=== PATIENT | female | born 2005 | race Asian ===

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

== ENCOUNTER 2024-06-18 17:19 | Emergency (ER) | payer BC ==
[~2024-06-18] VITALS: Ht 165.1 cm; Wt 67.0 kg
[~2024-06-18 17:19] MED LIST changes: +PANT-47 PO
[2024-06-18 17:23] VITALS: BP 143/80; PULSE 74; RESP 18; O2SAT 96
[2024-06-18] MEDS ORDERED: NAPH15DR8 LEFTEYE (18:34)
[2024-06-18] MEDS ORDERED: METH4TAB81 PO (18:34)
[2024-06-18] MEDS: predniSONE 20 mg tablet PO STA (18:45)
[2024-06-18] MEDS: diphenhydrAMINE 25mg capsule PO STA (18:45)
[2024-06-18 18:51] VITALS: TEMP 97.6
== END 2024-06-18 18:53 | disposition home or self-care (01) ==
LOC: ER 17:19
DX: T78.40XA Allergy, unspecified, initial encounter (principal); X58.XXXA Exposure to other specified factors, initial encounter; Z88.1 Allergy status to other antibiotic agents; Z88.2 Allergy status to sulfonamides
CPT/HCPCS: 99283; J7512; Q0163

== ENCOUNTER 2024-08-10 13:32 | Outpatient (CLI) | payer BC ==
[~2024-08-10 13:32] MED LIST changes: +METH4TAB81 PO; +NAPH15DR8 LEFTEYE
[2024-08-12 08:11] LABS: HEP B SURF AB Non Reactive (.)
[2024-08-12 11:10] LABS: MUMPS ANTIBODIES, IGG 62.8 AU/mL (Immune >10.9); RUBELLA ANTIBODIES, IGG 2.33 index (Immune >0.99); VARICELLA-ZOSTER VIRUS AB, IGG Non Reactive (Non Reactive)
== END 2024-08-10 23:59 | disposition home or self-care (01) ==
LOC: RAD 13:32
PROVIDERS: ATTEND Nurse Practitioner
DX: Z01.84 Encounter for antibody response examination (principal)
CPT/HCPCS: 36415; 86706; 86735; 86762; 86765